=== PATIENT | female | born 1985 | race Caucasian/White ===

== ENCOUNTER 2018-05-14 01:56 | Emergency (ER) | payer OTHER ==
[2018-05-14] MEDS: KETOROLAC 60 MG INJ IM (04:25)
[2018-05-14] MEDS: ACETAMINOPHEN 500 MG TAB PO (04:58)
== END 2018-05-14 05:02 | disposition home or self-care (01) ==
LOC: FTE 01:56
DX: K08.89 Other specified disorders of teeth and supporting structures (principal); Z87.891 Personal history of nicotine dependence
CPT/HCPCS: 81025; 96372; 99284-25